=== PATIENT | male | born 1980 | race Caucasian/White ===

== ENCOUNTER 2018-09-14 12:23 | Emergency (ER) | payer BC ==
[~2018-09-14] VITALS: Ht 188 cm; Wt 120.5 kg
[2018-09-14] MEDS ORDERED: AMLO10TA5 (12:29)
[2018-09-14] MEDS ORDERED: LISI40TA (12:29)
[2018-09-14] MEDS ORDERED: CHLO125TA (12:29)
[2018-09-14] MEDS ORDERED: KETOROLAC 30 MG/ML VIAL (J1885) IV ONE (14:00)
[2018-09-14] MEDS ORDERED: MECLIZINE 25 MG TABLET PO ONE (14:00)
[2018-09-14 14:14] LABS: BASO # 0.1 10^3/uL (0.0-0.2); BASO % 0.6 % (0.0-1.0); EOS # 0.1 10^3/uL (0.0-0.50); EOS % 0.8 % (0.0-3.0); HEMATOCRIT 39.1 % (42.0-52.0); LYMPH # 1.6 10^3/uL (1.5-4.5); LYMPH % 15.3 % (24.0-44.0); MEAN CORPUSCULAR HEMOGLOBIN 31.1 pg (27.0-33.0); MEAN CORPUSCULAR HGB CONC 35.8 g/dl (32.0-36.5); MEAN CORPUSCULAR VOLUME 86.9 fl (80.0-96.0); MONO % 9.3 % (0.0-5.0); NEUTROPHILS # 7.7 10^3/uL (1.8-7.7); NEUTROPHILS % 73.6 % (36.0-66.0); PLATELET COUNT, AUTOMATED 348 10^3/uL (150-450); WHITE BLOOD COUNT 10.4 10^3/uL (4.0-10.0)
[2018-09-14 14:46] LABS: BLOOD UREA NITROGEN 21 MG/DL (7-18); CALCIUM LEVEL 9.1 MG/DL (8.5-10.1); CARBON DIOXIDE LEVEL 27 MEQ/L (21-32); CHLORIDE LEVEL 98 MEQ/L (98-107); CREATININE FOR GFR 0.85 MG/DL (0.70-1.30); GLOMERULAR FILTRATION RATE > 60.0 (>60); GLUCOSE, FASTING 92 MG/DL (70-100); MAGNESIUM LEVEL 1.9 MG/DL (1.8-2.4); POTASSIUM SERUM 4.1 MEQ/L (3.5-5.1); SODIUM LEVEL 133 MEQ/L (136-145)
[2018-09-14 15:50] VITALS: BP 121/71
[2018-09-14] MEDS ORDERED: FLON1SPR NARES (16:18)
[2018-09-14] MEDS ORDERED: MUCI600T37 PO (16:18)
[2018-09-14] MEDS ORDERED: AUGM875T28 PO (16:18)
--- NOTE | 2018-09-16 09:49 | REP ---
Head CT without contrast: History: Dizziness and headache. Comparison study: No comparison study. CT findings: Bone window settings demonstrate an intact bony calvarium. There is no evidence of skull fracture or incidental bony calvarial lesion. There is moderate mucosal thickening and partial opacification of the left side of the sphenoid sinus. The visualized paranasal sinuses appear otherwise clear. No intraorbital abnormality is seen. On soft tissue window setting images; the lateral, third, and fourth ventricles are normal in size and position. Espinoza-white differentiation pattern is normal above and below the tentorium. There are is no evidence of intracranial hemorrhage. No mass, edema, infarction, or midline shift is seen. No extra-axial fluid collection is appreciated. Impression: Mucosal thickening and partial opacification left-sided sphenoid sinus. Otherwise negative noncontrast head CT. Electronically Signed by Steven Wheeler MD 09/14/2018 02:14 P
== END 2018-09-14 16:30 | disposition home or self-care (01) ==
LOC: M ED 12:23
DX: R51 Headache (principal); J01.90 Acute sinusitis, unspecified; I10 Essential (primary) hypertension; Z72.0 Tobacco use; Z79.899 Other long term (current) drug therapy
CPT/HCPCS: 70450; 80048; 83735; 85025; 96374; 99284; J1885

== ENCOUNTER → 2019-02-14 | Outpatient (CLI) | payer BC ==
[~2019-02-14] MED LIST: AMLO10TA5; AUGM875T28 PO; CHLO125TA; FLON1SPR NARES; LISI40TA; MUCI600T37 PO
--- NOTE | 2019-02-21 10:38 | SLEEPCENT ---
DATE OF STUDY: 02/14/2019 ORDERED BY: Shanti Lezama NP Nocturnal polysomnography was performed for the titration of pressure therapy in this patient with a history consistent with obstructive sleep apnea syndrome confirmed by home testing revealing a respiratory event index of 58. For testing, a ResMed AirFit F20 full face mask of large size was used, 4 cm of water pressure were applied to the circuit and the lights were extinguished. 6 hours and 33 minutes of data were reviewed. There 303.5 minutes of sleep identified. Sleep latency was mildly prolonged at 19.5 minutes. Rapid eye movement (REM) latency was normal at 84 minutes. Sleep architecture improved with optimal pressure therapy. There were four REM cycles noted. Overall sleep efficiency 78.4%. The patient's electrocardiogram shows a sinus rhythm with an average heart rate of 80 beats per minute. Rate ranged 60-100. EEG showed reasonably normal waveforms for awake and sleep. Respiratory events were found best palliated with C-PAP at a pressure of +11. There was some limb activity noted in the EMG leads. Limb movement arousal index was 5.3. IMPRESSION: Obstructive sleep apnea syndrome (G47.33). RECOMMENDATION: Nightly use of pressure therapy 11 cm of water. cc: Jen Olivares, ANP
== END ==
LOC: M SLEEP 19:47
PROVIDERS: ATTEND Nurse Practitioner Adult Health
DX: G47.33 Obstructive sleep apnea (adult) (pediatric) (principal)

== ENCOUNTER → 2023-07-21 | Outpatient (CLI) | payer BC ==
[~2023-07-21] MED LIST changes: -AMLO10TA5; +AMLO1TAB25; -LISI40TA; +LISI40TA4
== END ==
LOC: M WUC 12:03
PROVIDERS: ATTEND Physician Assistant Medical
DX: R06.02 Shortness of breath (principal)

== ENCOUNTER 2025-01-23 16:39 | Emergency (ER) | payer BC ==
[~2025-01-23] VITALS: Ht 182.9 cm; Wt 135.2 kg
[~2025-01-23 16:39] MED LIST changes: +LISI40TA10; -LISI40TA4
[2025-01-23] MEDS ORDERED: CHLO25TA PO (16:59)
[2025-01-23 17:29] LABS: BASO # 0.1 10^3/uL (0.0-0.2); BASO % 0.5 % (0.0-1.0); EOS # 0.1 10^3/uL (0.0-0.5); EOS % 0.4 % (0.0-3.0); LYMPH # 2.0 10^3/uL (1.5-5.0); LYMPH % 15.0 % (24.0-44.0); MONO # 1.2 10^3/uL (0.0-0.8); MONO % 9.3 % (2.0-8.0); NEUTROPHILS # 9.9 10^3/uL (1.5-8.5); NEUTROPHILS % 74.4 % (36.0-66.0); PLATELET COUNT, AUTOMATED 277 10^3/uL (150-450)
[2025-01-23 17:52] LABS: CK-MB VALUE MASS 2.9 NG/ML (<3.6)
[2025-01-23 17:55] LABS: ALT/SGPT 39 U/L (7.0-40); AST/SGOT 27 U/L (<34); CALCIUM LEVEL 9.6 MG/DL (8.5-10.1); CARBON DIOXIDE LEVEL 24 MMOL/L (20-31); CHLORIDE LEVEL 92 MMOL/L (98-107); CREATININE FOR GFR 0.63 MG/DL (0.70-1.30); GLOMERULAR FILTRATION RATE > 90.0 (>60); MAGNESIUM LEVEL 1.5 MG/DL (1.8-2.4); POTASSIUM SERUM 3.4 MMOL/L (3.5-5.1); SODIUM LEVEL 130 MMOL/L (136-145)
[2025-01-23 17:56] LABS: CPK CREATINE PHOSPHOKINASE 270 U/L (46-171); MB/CK RELATIVE INDEX 1.07 (< OR =4)
[2025-01-23 19:53] LABS: CK-MB VALUE MASS 2.2 NG/ML (<3.6)
[2025-01-23 19:54] LABS: CPK CREATINE PHOSPHOKINASE 255.0 U/L (46-171); MB/CK RELATIVE INDEX 0.86 (< OR =4)
[2025-01-24] MEDS: MAG SULF 1GM/100ML (MAG RUN) 1 GM in IV 1 EA IV ONE (05:14)
[2025-01-24] MEDS: MAGNESIUM OXIDE 400 MG TAB PO ONE (05:15)
[2025-01-24] MEDS: POTASSIUM CHLORIDE 10MEQ SR TABLET PO ONE (05:15)
[2025-01-24] MEDS: NS (Normal Saline) 0.9% 1,000 ML IV ONE (05:15)
[2025-01-24 06:37] VITALS: BP 117/71; TEMP 97.2; O2SAT 98
== END 2025-01-24 06:39 | disposition home or self-care (01) ==
LOC: M ED 16:39
DX: E83.42 Hypomagnesemia (principal); E87.1 Hypo-osmolality and hyponatremia; E87.6 Hypokalemia; K21.9 Gastro-esophageal reflux disease without esophagitis; I10 Essential (primary) hypertension; F17.200 Nicotine dependence, unspecified, uncomplicated; F10.10 Alcohol abuse, uncomplicated; Z79.899 Other long term (current) drug therapy
CPT/HCPCS: 71046; 80048; 80076; 82550; 82553; 83735; 84484; 85025; 93005; 96361; 96374; 99284; J3475